=== PATIENT | male | born 1965 | race Caucasian/White ===

== ENCOUNTER 2018-12-23 00:59 | Outpatient (CLI) | payer BC, SELFPAY ==
[2018-12-23 12:10] LABS: ALT 46 U/L (12-78); AST 20 U/L (15-37); Albumin 4.1 g/dL (3.4-5.0); Alkaline Phosphatase 93 U/L (46-116); Anion Gap 7.8 mmol/L (3-11); BUN 11 mg/dL (7-18); Bilirubin, Total 0.6 mg/dL (0.2-1.0); CO2 32.2 mmol/L (21.0-32.0); CREATININE 0.96 mg/dL (0.70-1.30); Calcium 9.2 mg/dL (8.5-10.1); Chloride 96 mmol/L (98-107); Cholesterol 222 mg/dL (50-200); Glucose 114 mg/dL (70-100); HDL Cholesterol 47 mg/dL (40-60); LDL CHOLESTEROL 153 mg/dL (<100); Magnesium 1.3 mg/dL (1.8-2.4); Potassium 4.2 mmol/L (3.5-5.1); Sodium 136 mmol/L (136-145); TSH (W/Ref FT4) 2.03 uIU/mL (0.358-3.74); Total Protein 7.4 g/dL (6.4-8.2); Triglyceride 87 mg/dL (30-150)
== END 2018-12-23 01:19 ==
PROVIDERS: PCP Family Medicine; Visit Provider Family Medicine
DX: Z00.00 Encounter for general adult medical examination without abnormal findings (principal); I10 Essential (primary) hypertension
CPT/HCPCS: 36415; 80053; 80061; 83721; 83735; 84443

== ENCOUNTER 2019-12-28 09:32 | Outpatient (CLI) | payer BC, SELFPAY ==
[2019-12-28 12:09] LABS: ALT 55 U/L (16-63); AST 24 U/L (15-37); Albumin 4.3 g/dL (3.4-5.0); Alkaline Phosphatase 90 U/L (46-116); Anion Gap 10.3 mmol/L (3-11); BUN 11 mg/dL (7-18); Bilirubin, Total 0.7 mg/dL (0.2-1.0); CO2 29.7 mmol/L (21.0-32.0); Calcium 9.4 mg/dL (8.5-10.1); Calculated LDL 147 mg/dL (<100); Chloride 98 mmol/L (98-107); Cholesterol 218 mg/dL (<200); GGT 83 U/L (15-85); Glucose 115 mg/dL (74-106); HDL Cholesterol 52 mg/dL (40-60); Sodium 138 mmol/L (136-145); Total Protein 7.1 g/dL (6.4-8.2); Triglyceride 95 mg/dL (<150)
[2019-12-29 10:22] LABS: PSA, Screening 1.4 ng/mL (0.0-3.5)
== END 2019-12-28 09:52 ==
PROVIDERS: PCP Family Medicine; Visit Provider Family Medicine
DX: Z00.00 Encounter for general adult medical examination without abnormal findings (principal); I10 Essential (primary) hypertension; Z12.5 Encounter for screening for malignant neoplasm of prostate
CPT/HCPCS: 36415; 80053; 80061; 84153; 82977

== ENCOUNTER 2020-04-17 20:47 | Emergency (ER) | payer OTHER, BC, SELFPAY ==
[2020-04-17 20:50] VITALS: BP 124/87; PULSE 120; RESP 18; TEMP 36.7; O2SAT 97
--- NOTE | 2020-04-17 21:00 | DI.RAD_ITS ---
EXAM: XR FINGER LT MIDDLE CLINICAL HISTORY: blunt trauma TECHNIQUE: COMPARISON: No exams were available for comparison FINDINGS: Three views were obtained. There is a transverse fracture of the base of the distal phalanx of the m iddle finger which appears to involve the articular surface with minimal displacement. No other frac ture seen. Marked soft tissue deformity noted. IMPRESSION:
--- NOTE | 2020-04-17 21:12 | ED.GENADUL_ITS ---
Discharge Plan Disposition Patient Disposition: HOME Condition: Improving Discharge Details Chief Complaint: Laceration Clinical Impression: Finger laceration, Fracture of distal phalanx of finger Primary Care Provider: Sonali Daly ED Provider: Sebastian Arechiga Home Meds and New Rx's Prescriptions: New cephalexin 500 mg capsule 500 mg PO TID 3 Days Qty: 9 RF: 0 Continued lisinopril-hydrochlorothiazide 10-12.5 mg tablet 1 tab PO DAILY Qty: 90 RF: 4 Hold Instructions: Changed by Provider aspirin 81 MG tablet,chewable 81 mg PO DAILY RF: 0 omeprazole 20 mg capsule,delayed release(DR/EC) 20 mg PO DAILY Qty: 90 RF: 4 Discharge Instructions Instructions: Finger Fracture (ED), Finger Laceration (ED) Additional Instructions: Leave dressing in place and keep dry while showering until seen in orthopedic clinic for follow-up. Please call the orthopedic clinic at [phone] for an appointment time. Take antibiotics as prescribed. Return for fever, chills, foul-smelling discharge from the wound or any other acute concerns. May use Tylenol if needed for pain. Medical Decision Making 54-year-old male who suffered blunt trauma to his left long finger while working on a well part. He suffered a an obliquely oriented laceration through the distal portion of the nail on the dorsal/ulnar aspect. He does have sensation intact but cannot discriminate 1 cm two-point. X-ray reveals a minimally displaced distal phalanx fracture. Anesthetized a digital block and repaired with 3 interrupted Prolene sutures. Dressed and placed in a splint. Will place him on a short course of Keflex, he will follow-up in orthopedics for recheck. HPI General Mode of arrival: ambulatory . Date/Time Provider Initiated Documentation: 04/17/20 20:48 . Limitations to Documentation: no limitations . Information obtained by: patient . History of Present Illness 54 year old M presents to the emergency department with the chief complaint of Left long finger injury, described as moderate, Quality is described as dull, and is localized to the left and upper extremity. Patient reports no radiation. Patient started experiencing this minute(s) and it has been constant. No rel ieving factors improve symptom(s), No exacerbating factors reported . Patient notes no other symptoms.. Patient did receive the following treatments prior to arrival, none Related Data Home Medications Medication Instructions Recorded Confirmed aspirin 81 mg PO DAILY tab-cap 12/03/16 04/17/20 omeprazole 20 mg capsule,delayed 20 mg PO DAILY #90 tab-cap 11/22/19 04/17/20 release lisinopril 10 1 tab PO DAILY #90 tab 12/28/19 04/17/20 mg-hydrochlorothiazide 12.5 mg tablet cephalexin 500 mg PO TID 3 Days #9 cap 04/17/20 Previous Rx's Medication Instructions Recorded omeprazole 20 mg capsule,delayed 20 mg PO DAILY #90 tab-cap 11/22/19 release lisinopril 10 1 tab PO DAILY #90 tab 12/28/19 mg-hydrochlorothiazide 12.5 mg tablet cephalexin 500 mg PO TID 3 Days #9 cap 04/17/20 Allergies Allergy/AdvReac Type Severity Reaction Status Date / Time No Known Allergies Allergy Unverified 04/17/20 20:57 General Stated Complaint: Laceration LAWRENCE: 4 Review of Systems Narrative: Immunizations up-to-date. Patient is otherwise well. 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 Lobectomy metastasis S/P lobectomy of lung (Resolved) metastasis S/P lower limb amputation (Resolved) Status post below knee amputation (Inactive) Status post lobectomy of lung (Inactive) Family History Mother Asthma Lung cancer Liver cancer Father No problems noted. Sister No problems noted. Brother No problems noted. Maternal Grandfather No problems noted. Paternal Grandfather Heart disease Maternal Grandmother Cancer Paternal Grandmother No problems noted. Social History (Updated 12/29/19 @ 12:07 by William Barth) Smoking/Tobacco Use Status: Current every day Tobacco Type: smokeless tobacco Smokeless tobacco user: chewing tobacco Quit status: has quit before Second Hand Exposure: Yes Alcohol Intake: current Alcohol Intake frequency: 0-2 drinks per day Alcohol type: beer Drug use: Never Substance use type: does not use Caregiver/Support person: No Household members: significant other Housing: house Communication Needs: None Do you need help understanding health information?: Rarely Pets and animals: Yes Pets and animals: cat(s) and dog(s) Sexually active: Yes Do you think of yourself as: straight/heterosexual Current gender identity: male What is your relationship status?: living with partner How often do you talk on the phone with friends or family?: three or more times per week How often do you get together with friends or relatives?: once per week How often do you attend nondenominational or mu-ism services?: decline to answer Do you belong to any clubs or organized social groups?: no Panel score (0-1 are the most socially isolated patients): 2 What type of physical activity do you participate in: other 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 Pleasant, well groomed, interactive. HEAD: Normocephalic, atraumatic EXT: Full ROM, left long finger with a obliquely oriented laceration distal to the nailbed on the ulnar aspect. Two-point discrimination is not intact at 1 cm on the affected part of the finger. There is an abrasion to the distal portion of the ring finger. Neuro: Grossly normal neurologic exam, conversant, interactive. Psych: Speech fluent, thoughts congruent, affect normal Course Vital Signs Vital signs: Vital Signs Temperature 36.7 C 04/17/20 20:50 Pulse 120 H 04/17/20 20:50 Respiratory Rate 18 04/17/20 20:50 Blood Pressure 124/87 04/17/20 20:50 Pulse Oximetry 97 04/17/20 20:50 Temperature 36.7 C 04/17/20 20:50 Temperature Source Skin 04/17/20 20:50 Pulse 120 H 04/17/20 20:50 Respiratory Rate 18 04/17/20 20:50 Respiratory Effort Non-Labored 04/17/20 20:58 Blood Pressure 124/87 04/17/20 20:50 Blood Pressure Position Sitting 04/17/20 20:50 Pulse Oximetry 97 04/17/20 20:50 Oxygen Delivery Method Room Air 04/17/20 20:50 Oxygen Flow Rate 0 04/17/20 20:50 Pain Level 0 04/17/20 20:57 Procedures Laceration Laceration 1: Site: hand Side (If applicable): left Size (cm): 2.5 Description: flap and irregular Local Anesthetic: Lidocaine 1% Pre-repair: irrigated extensively Skin layer closed with: other (Prolene) Size (cm): 5-0 Number of sutures: 3 Technique: simple, interrupted
--- NOTE | 2020-04-17 21:34 | DI.VRAD_ITS ---
PROCEDURE INFORMATION: Exam: XR Left Finger(s) Exam date and time: 04/17/2020 9:29 PM Age: 54 years old Clinical indication: Injury or trauma; Injury history: Finger caught in a machine; Work related; Initial encounter; Crushing; Left; Middle finger; Injury date: 04/17/20; Injury details: Caught in machinery TECHNIQUE: Imaging protocol: XR Left fingers. Views: Minimum 2 views. COMPARISON: No relevant prior studies available. FINDINGS: Bones/joints: A discrete transverse fracture line is seen involving the most proximal shaft and base of the distal phalanx of the left 3rd finger with only minimal displacement. No other fracture identified with general arthrosis noted involving the left index finger metacarpophalangeal joint. Soft tissues: Soft tissue avulsion injury involving the tip of the left 3rd finger as seen on the lateral view. IMPRESSION: Minimally displaced fracture of the distal phalanx of the left 3rd finger with associated soft tissue injury as above. Dictated and Authenticated by: Parveen Richards MD. Ordering:JAQUELIN Cortes MD
[2020-04-17 22:00] VITALS: BP 124/87; PULSE 120; RESP 18; TEMP 36.7; O2SAT 97
== END 2020-04-17 22:00 | disposition home or self-care (01) ==
PROVIDERS: Emergency Provider Emergency Medicine; PCP Family Medicine
DX: S61.313A Laceration without foreign body of left middle finger with damage to nail, initial encounter (principal); S62.633A Displaced fracture of distal phalanx of left middle finger, initial encounter for closed fracture; S60.412A Abrasion of right middle finger, initial encounter; W23.0XXA Caught, crushed, jammed, or pinched between moving objects, initial encounter; Y99.0 Civilian activity done for income or pay; I10 Essential (primary) hypertension
CPT/HCPCS: 12001; 26750; 73140

== ENCOUNTER 2021-01-01 16:23 | Outpatient (REF) | payer BC, SELFPAY ==
[2021-01-01 13:39] LABS: ALT 51 U/L (16-63); AST 21 U/L (15-37); Albumin 4.4 g/dL (3.4-5.0); Alkaline Phosphatase 89 U/L (46-116); BUN 12 mg/dL (7-18); Bilirubin, Total 0.6 mg/dL (0.2-1.0); Calcium 9.6 mg/dL (8.5-10.1); Calculated LDL 130 mg/dL (<100); Chloride 95 mmol/L (98-107); Cholesterol 205 mg/dL (<200); Glucose 128 mg/dL (74-106); HDL Cholesterol 49 mg/dL (40-60); Sodium 136 mmol/L (136-145); Total Protein 7.7 g/dL (6.4-8.2); Triglyceride 134 mg/dL (<150)
== END 2021-01-01 16:24 | disposition home or self-care (01) ==
LOC: LBN 16:23
PROVIDERS: PCP Family Medicine; Visit Provider Family Medicine
DX: Z00.00 Encounter for general adult medical examination without abnormal findings (principal); Z13.220 Encounter for screening for lipoid disorders; Z13.228 Encounter for screening for other metabolic disorders
CPT/HCPCS: 80053; 80061

== ENCOUNTER 2021-12-18 15:01 | Outpatient (CLI) | payer BC, SELFPAY ==
--- NOTE | 2021-12-18 12:45 | DI.RAD_ITS ---
Exam(s) XR KNEE LT 3V AP,LAT,ATIYA EXAM: XR KNEE LT 3V AP,LAT,ATIYA CLINICAL HISTORY: l knee pain, M25.562 TECHNIQUE: COMPARISON: No exams were available for comparison FINDINGS: Three views were obtained. The cartilaginous joint spaces appear fairly well maintained. There are minimal marginal osteophytes involving all 3 joints of the knee. No other significant bony or soft t issue abnormality seen. IMPRESSION: Slight degenerative changes as described above. RADIATION DOSE DELIVERED: Total DLP
== END 2021-12-18 15:21 ==
PROVIDERS: PCP Family Medicine; Visit Provider Family Medicine
DX: M25.562 Pain in left knee (principal); M25.762 Osteophyte, left knee
CPT/HCPCS: 73562

== ENCOUNTER 2021-12-20 09:08 | Outpatient (CLI) | payer BC, SELFPAY ==
--- NOTE | 2021-12-20 09:00 | DI.MRI_ITS ---
Exam(s) MR LOWER JOINT LT WO EXAM: MR LOWER JOINT LT WO CLINICAL HISTORY: left leg internal derangement/ r leg amputated,lt knee pain, m25.562,s TECHNIQUE: Multiplanar multisequence MRI of the knee was performed. COMPARISON: No exams were available for comparison FINDINGS: EFFUSION: A small joint effusion is noted. There is also a Valles cyst in the popliteal fossa which m easures 5 cm craniocaudal by 1 cm AP MARROW:There is no evidence of fracture, bone contusion, nor osteochondral defects.. There are no si gnificant osseous lesions. PATELLOFEMORAL COMPARTMENT: The quadriceps tendon is intact. The patellar ligament is intact. There is moderate thinning of the retropatellar cartilage over the mid and medial facet. There is so me subarticular edema-mild in the posterior aspect of the patella at this level. Also small marginal patellar osteophytes.No evidence to suggest recent patellar dislocation. However, there is signific ant signal abnormality the junction of the medial patellar retinaculum and MCL consistent with tearin g at this level MEDIAL COLLATERAL LIGAMENT: Partial tearing evident CRUCIATE LIGAMENTS: The anterior cruciate ligament is intact.The posterior cruciate ligament is intac t. MEDIAL COMPARTMENT/MEDIAL MENISCUS: There is a tear of the outer 3rd of the posterior horn of the med ial meniscus and there is meniscocapsular separation with significant signal abnormality interposed b etween the outer aspect of the meniscus and the MCL at this level as well as partial tearing of the M CL at its most anterior aspect. The meniscal root is intact. Anterior horn is intact. There moderate degenerative changes in the cartilage over the medial condyle. Also small osteophyte noted. LATERAL COMPARTMENT/LATERAL MENISCUS: There is no evidence of lateral meniscal tear.There are no afia dral defects, osteochondral defects, subarticular marrow edema, nor osteophytes evident. ILIOTIBIAL BAND: Intact LATERAL COLLATERAL LIGAMENT COMPLEX: The fibular collateral ligament is intact. The biceps femoris t endon is intact.Popliteus muscle and tendon are intact. IMPRESSION: 1. There is a tear of the outer third of the medial meniscus with an element of meniscocapsular separ ation and partial tearing of the anterior aspect of the MCL. There are mild-moderate osteoarthritic degenerative changes in the medial compartment. There are no tears of the lateral meniscus nor obvio us degenerative changes in the lateral compartment. 2. There are no cruciate ligament tears. Lateral collateral ligament complex is intact 3. Moderate chondromalacia changes over the mid and medial facet of the patella. Mild subarticular i ntraosseous degenerative findings in the posterior patella at this level. 4. Small joint effusion. There is a 5 cm length nonruptured Valles's cyst in the medial popliteal fos sa. DATA REPOSITORY:
== END 2021-12-20 09:28 ==
PROVIDERS: PCP Family Medicine; Visit Provider Family Medicine
DX: M25.562 Pain in left knee (principal); M23.8X2 Other internal derangements of left knee; M25.462 Effusion, left knee; M71.22 Synovial cyst of popliteal space [Baker], left knee; S83.412A Sprain of medial collateral ligament of left knee, initial encounter; S83.242A Other tear of medial meniscus, current injury, left knee, initial encounter; M17.12 Unilateral primary osteoarthritis, left knee; X58.XXXA Exposure to other specified factors, initial encounter
CPT/HCPCS: 73721

== ENCOUNTER 2022-01-14 02:56 | Outpatient (CLI) | payer BC, SELFPAY ==
[2022-01-14 11:27] LABS: Source Nasal/Nares
[2022-01-14 16:09] LABS: COVID-19 PCR Negative (Negative)
== END 2022-01-14 02:57 | disposition home or self-care (01) ==
LOC: LBO 02:56
PROVIDERS: PCP Family Medicine; Visit Provider Student in an Organized Health Care Education/Training Program
DX: Z20.822 Contact with and (suspected) exposure to COVID-19 (principal); Z01.818 Encounter for other preprocedural examination
CPT/HCPCS: 87635

== ENCOUNTER 2022-01-16 08:15 | Day surgery (SDC) | payer BC, SELFPAY ==
[2022-01-16] VITALS (7 sets, daily range): BP systolic 106–138; BP diastolic 61–90; PULSE 64–101; RESP 11–16; TEMP 36.2–36.6; O2SAT 96–98; BMI 25.6
[2022-01-16] MEDS: Acetaminophen 500 MG TAB 1000 MG PO (08:55)
[2022-01-16] MEDS: Celecoxib 200 MG CAP 400 MG PO (08:55)
[2022-01-16] MEDS: Lactated Ringers 1,000 ML 80 ML IV (08:55)
--- NOTE | 2022-01-16 09:03 | W.ANESPRE ---
General Info Date of Service Date Performed: 01/16/22 Height: 5 ft 9 in Weight: 78.7 kg Body Mass Index (BMI): 25.6 Surgical Procedure: Operation Date: 01/16/22 10:10 Proposed Procedure Side Surgeon p Knee Arthroscopy Left Samir Parker MD Meds Allergies and Home Medications Allergies Allergy/AdvReac Type Severity Reaction Status Date / Time No Known Allergies Allergy Verified 01/16/22 08:30 Home Medication Medication Instructions Recorded omeprazole 20 mg capsule,delayed 20 mg PO DAILY #90 tab-cap 02/19/21 release hydrochlorothiazide 12.5 mg tablet 12.5 mg PO QAM #90 tab 08/20/21 lisinopril 10 mg tablet 10 mg PO DAILY #90 tab 08/20/21 Current Visit Medications: Current Medications Generic Name Dose Route Start Last Admin Trade Name Freq PRN Reason Stop Dose Admin Acetaminophen 1,000 mg 01/16/22 06:00 01/16/22 08:55 Acetaminophen 500 Mg Tab PO 1,000 mg PREOP TIANNA Administration Celecoxib 400 mg 01/16/22 06:00 01/16/22 08:55 Celecoxib 200 Mg Cap PO 400 mg PREOP TIANNA Administration Ringer's Solution 1,000 mls @ 80 mls/hr 01/16/22 06:00 01/16/22 08:55 IV 02/14/22 23:59 80 mls/hr INFUSION TIANNA Administration Cefazolin Sodium/Dextrose 2 gm in 50 mls @ 100 mls/hr 01/16/22 06:00 Ancef Duplex IVPB 02/14/22 23:59 PREOP TIANNA IV Miscellaneous Supplies 1 each 01/16/22 06:00 Iv Access IV 02/14/22 23:59 DIRECTED TIANNA Sodium Chloride 0 ml 01/16/22 06:00 Normal Saline Flush 10 Ml Syr IV 02/14/22 23:59 PRN PRN Sodium Chloride 0 ml 01/16/22 06:00 Normal Saline 10 Ml Vial IJ 02/14/22 23:59 DIRECTED PRN Sterile Water 0 ml 01/16/22 06:00 Water,Injection,Sterile 10 Ml Vial IJ 02/14/22 23:59 DIRECTED PRN PFSH Active Problems Active Problems: Problem Status Onset Code Uveitis H20.9 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 09/25/81 C40.21 Annual physical exam 02/13/18 Z00.00 Essential hypertension Tachycardia Sinusitis J32.9 Encounter for annual physical exam Z00.00 Knee pain, left M25.562 Tear of medial collateral ligament of left knee 12/13/21 S83.412A Tear of meniscus of left knee 12/13/21 S83.207A Annual physical exam Z00.00 Medical History Medical History ACL (anterior cruciate ligament) tear Hypokalemia 11/06/15 Hypokalemia (11/06/15) Hypomagnesemia 11/06/15 Hypomagnesemia (11/06/15) Osteosarcoma of bone Palpitation 12/03/16 Palpitations (12/03/16) Primary malignant neoplasm of lung (09/25/82) metastatic lung cancer 1 year later; now disease free Surgical History Surgical History Amputation right below kne Below knee amputation status right. 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 states it is ABOVE the knee amputations Status post lobectomy of lung Tobacco Smoking/Tobacco Use Status: Current every day Tobacco Type: smokeless tobacco Smokeless tobacco user: chewing tobacco Passive smoking exposure: Yes Second hand exposure: Yes Alcohol Alcohol Intake: current Alcohol intake frequency: 0-2 drinks per day Alcohol type: beer Substance Use Substance use: Never Substance use type: does not use Vital Signs and Lab Results Vital Signs Most Recent Vital Signs in EMR: Most Recent Vital Signs Temp Pulse Resp BP Pulse Ox 36.6 C 101 H 16 129/90 96 01/16/22 08:31 01/16/22 08:31 01/16/22 08:31 01/16/22 08:31 01/16/22 08:31 Lab Results Blood Type / Crossmatch: No Data to Display Complete Blood Count: No Data to Display Complete Metabolic Panel: No Data to Display Liver Function Panel: No Data to Display Coagulation Panel: No Data to Display Cardiac Panel: No Data to Display Arterial Blood Gas: No Data to Display Venous Blood Gas: No Data to Display Pancreas Panel: No Data to Display Thyroid Panel: No Data to Display Infectious Disease: Coronavirus (COVID-19)(PCR) Negative (Negative) 01/14/22 09:38 01/14/22 Coronavirus 2019 Source Nasal/Nares 01/14/22 09:38 01/14/22 Blood Cultures: No Data to Display Toxicology Panel: No Data to Display Anesthesia Assessment and Plan Anesthesia History Personal History: No History of Anesthesia Complications Family History: No Family History of Anesthesia Complications Exercise Tolerance Exercise Tolerance: Metabolic Equivalents>4 Pertinent Negatives Pertinent Negatives: No Symptoms of GERD, No Major Cardiovascular Symptoms or Complaints, No Major Pulmonary Symptoms or Complaints and No History of CVA/TIA Cardiac & Pulmonary Exam Cardiac Exam: Normal S1/S2 Heart Sounds Pulmonary Exam: Clear Bilateral Breath Sounds Implantable Cardiac Device Does patient have a Pacemaker or an ICD?: No Airway Exam Known Difficult Airway: No Mallampati Class: 1 Mouth Opening: Normal (> 3cm) Thyromental Distance: Greater than 3 cm Neck Range of Motion: Full ROM Neck Circumference: Normal Teeth Condition: Normal Dentition ASA Classification ASA Score: ASA 2 Emergency Case?: No NPO Status NPO Status: NPO Clears >2 hours, Solids >8 hours Anesthesia Plan Resuscitation Status: Full Code Anesthesia Technique: General Anesthesia Airway Planned: LMA Monitors Used: Standard Monitors
[2022-01-16] MEDS: ceFAZolin 2 GM/50 ML BAG IVPB (10:58)
[2022-01-16] MEDS: Bupivacaine 0.5% Pres-Free 30 ML VIAL (11:25)
--- NOTE | 2022-01-16 15:17 | W.ANESPOSTOP ---
Postoperative Evaluation Date, Time and Location Date Performed: 01/16/22 Time Performed: 13:15 Patient Location: Day Surgery Unit Vital Signs Most Recent Imported Vital Signs: Most Recent Vital Signs Temp Pulse Resp BP Pulse Ox 36.2 C L 71 16 125/82 98 01/16/22 12:57 01/16/22 12:57 01/16/22 12:57 01/16/22 12:57 01/16/22 12:57 Pain Score Most Recent Pain Score: Most Recent Pain Score Pain Level 0 01/16/22 12:57 Assessment Mental Status: Awake (Alert & Oriented to Patient Baseline) Airway and Respiratory Function: Patent airway with normal (patient baseline) respiratory exam Cardiovascular Function: Hemodynamically Stable Hydration Status: Adequately Hydrated Nausea & Vomiting: No Nausea or Vomiting Pain: Pain is tolerable per patient Peripheral Nerve Block: Patient did not receive a nerve block
--- NOTE | 2022-01-16 19:42 | W.PM.OP ---
Date of service: 01/16/22 Time of Service: 11:40 Operative Note Operative Note DATE OF PROCEDURE: 01/16/22 PRE-OP DIAGNOSIS: Left Knee Medial Meniscus Tear POST-OP DIAGNOSIS: same Left Knee Medial Compartment Chondromalacia SURGEON: Samir Parker Refer to Anesthesia Record ESTIMATED BLOOD LOSS: 0 PATHOLOGY: none sent COMPLICATIONS: None Patient was transported to: PACU Patient's condition: stable Indications: I have seen Hung in clinic for symptoms of a meniscus tear. This was confirmed based on MRI and exam findings. Nonoperative measures were exhausted but disability and pain persisted. I discussed knee arthroscopy with meniscal intervention with the patient. I reviewed the risks of the procedure to include, but not limited to, bleeding, infection, pain, stiffness, damage to nerves or vessels, recurrence, blood clot. Despite these risks, the patient elected to proceed. Findings: A diagnostic arthroscopy was performed with the following findings: Suprapatellar Pouch: Moderate inflammatory changes, No loose bodies Medial Compartment: Complex medial meniscal tear, Intact meniscal root, Grade II chondromalacia throughout with some Grade III focal changes on the femur, No loose bodies Notch: ACL and PCL were intact Lateral Compartment: No meniscal tear, Intact meniscal root, No significant chondromalacia or signs of arthritis, No loose bodies Patellofemoral Compartment: Grade II chondromalacia, No apparent patellar maltracking Procedure Description: Hung was greeted in the preoperative holding area where the correct side was identified and marked. The consent was reviewed with the patient and signed. The history and physical was updated. All questions were answered. He was taken back to the operating room. The patient was placed into the supine position on the operating room table. All bony prominences were well padded. Prophylactic antibiotics in the form of Cefazolin were administered. The left leg was then prepped with Chloraprep and draped in a standard fashion with stockinette and extremity drape. A timeout to confirm correct identity, side and site, procedure, allergies, anesthesia, and medical concerns was performed. The leg was placed into a pneumatic leg lamas, [id number]. A standard lateral portal was made at the lateral border of the patella tendon in line with the inferior pole of the patella, soft spot. The skin and deep tissue was incised sharply and the blunt trochar was inserted atraumatically. A diagnostic arthroscopy was performed and the findings are listed above. The suprapatellar pouch had moderate inflammatory changes. The patellofemoral articulation showed some Grade II chondromalacia at the apex and within the trochlea as well as good tracking. The lateral gutter had no loose bodies and the medial gutter had no loose bodies. The knee was brought into some valgus stress in extension to open the medial compartment. A medial portal was made, localized by a spinal needle. The portal was created with an #11 blade through skin and capsule under direct visualization avoiding any meniscal injury. A probe was then inserted into the medial compartment. The medial compartment was fully inspected. The chondral surface of the tibia showed Grade I chondromalacia and the surface of the femur showed Grade II chondromalacia with some focal Grade III chondromalacia including flap edges centrally. The medial meniscus had a complex tear with a loose piece within the posterior horn completely disconnected from the capsular tissues. There was also some degeneration of the meniscus posteriorly at the root but the root was intact. Complex, horizontal based tearing, was also seen within the meniscus extending anteriorly and posteriorly from the previous tear. After evaluation, the meniscus was debrided down to a stable base using a series of biters and arthroscopic andressa. It was probed afterwards to confirm that the tear had been removed and the meniscus was stable. Cartilage surfaces were debrided of any flaps, leaving any intact fibers. The notch was then inspected which showed an intact ACL and an intact PCL. The leg was then brought into a figure of 4 position. The lateral compartment was fully inspected with the arthroscope and a probe. The chondral surface of the lateral femur showed no significant chondromalacia. The chondral surface of the lateral tibia showed no significant chondromalacia. The lateral meniscus had no meniscal tear. The arthroscope was brought back into the suprapatellar pouch and the leg was in full extension. The knee was thoroughly irrigated with the arthroscopic fluid on high flow and pressure. Inflow was stopped and excess fluid was removed. The wounds were closed with 4-0 Nylon. They were dressed with Xeroform, 4x4 gauze, ABD pad, Kerlix and an KWESI wrap. A cryo-cuff was applied. The patient tolerated the procedure well and was returned to the Same Day Surgery area in a stable condition suffering no known complication.
== END 2022-01-16 13:34 | disposition home or self-care (01) ==
PROVIDERS: PCP Family Medicine; Visit Provider Student in an Organized Health Care Education/Training Program
PROC: (CPT 29870; principal; 2022-01-16 10:00)
DX: M23.232 Derangement of other medial meniscus due to old tear or injury, left knee (principal); M94.262 Chondromalacia, left knee; F17.220 Nicotine dependence, chewing tobacco, uncomplicated
CPT/HCPCS: 29881; J0690; J1885; J2001; J2250; J2405

== ENCOUNTER 2022-03-15 02:22 | Outpatient (CLI) | payer BC, SELFPAY ==
[2022-03-15 13:42] LABS: ALT 45 U/L (16-63); AST 20 U/L (15-37); Alkaline Phosphatase 99 U/L (46-116); BUN 10 mg/dL (7-18); Bilirubin, Total 0.4 mg/dL (0.2-1.0); CREATININE 0.9 mg/dL (0.70-1.30); Calcium 9.2 mg/dL (8.5-10.1); Calculated LDL 143 mg/dL (<100); Chloride 97 mmol/L (98-107); Cholesterol 221 mg/dL (<200); Glucose 91 mg/dL (74-106); HDL Cholesterol 51 mg/dL (40-60); Potassium 3.9 mmol/L (3.5-5.1); Sodium 139 mmol/L (136-145); Total Protein 7.4 g/dL (6.4-8.2); Triglyceride 139 mg/dL (<150)
== END 2022-03-15 02:23 | disposition home or self-care (01) ==
LOC: LOS 02:24
PROVIDERS: PCP Family Medicine; Visit Provider Family Medicine
DX: Z00.00 Encounter for general adult medical examination without abnormal findings (principal); I10 Essential (primary) hypertension
CPT/HCPCS: 36415; 80053; 80061

== ENCOUNTER → 2022-05-29 01:49 | Outpatient (CLI) | payer BC, SELFPAY ==
--- NOTE | 2022-05-29 08:00 | DI.MRI_ITS ---
Exam(s) MR LOWER JOINT LT WO EXAM: MR LOWER JOINT LT WO CLINICAL HISTORY: pre op decision for partial versus total knee,lt knee pain, tear meniscus. TECHNIQUE: Multiplanar multisequence MRI was performed. COMPARISON: CR XR KNEE LT 3V AP,LAT,ATIYA from 12/18/2021 MR MR LOWER JOINT LT WO from 12/20/2021 FINDINGS: BONES: There is no fracture or contusion pattern. JOINTS: The articular cartilage of the medial femoral condyle shows thinning and irregularity extendi ng down to bone with some abnormal foci of high signal in the marrow. There is also thinning or foca l area of thinning of the lateral femoral condyle cartilage which extends down to bone but does not i nvolve the underlying bone. There is also focal areas of thinning in the cartilage over the lateral tibial plateau. The cartilage over the medial tibial plateau is severely thin there is mild adjacent marrow edema. The findings appear to have worsened when compared the previous exam. Stable cartila ge thinning at the patellar apex and medial patellar facet. There is thinning and irregularity of th e cartilage overlying the adjacent aspect of the femoral cartilage. A small to moderate-sized joint effusion is present, increasing compared with the previous exam.. TENDONS: Extensor mechanism: Unremarkable. Medial retinaculum: Unremarkable. Lateral retinaculum: Unremarkable. Popliteus: Unremarkable. MUSCLES: Some edema in the medial head of the gastrocnemius muscle adjacent to the Valles's cyst. MENISCI: The body the medial meniscus is absent or extremely diminutive which may be postsurgical or degenerative. There is mildly increased signal in both the anterior and posterior horns. The latera l meniscus is unremarkable. SOFT TISSUES: Varicosities medial subcutaneous tissue. Increasing size of Valles's cyst, now with lacey e loculations extending inferiorly.. LIGAMENTS: Anterior Cruciate: Unremarkable. Posterior Cruciate: Unremarkable. Medial Collateral:Some surrounding fluid but no visible focal tear. Lateral Collateral: Unremarkable. IMPRESSION: Absent or extremely diminutive body of the medial meniscus, degenerative versus postsurgical. 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 Stable moderate chondromalacia of the patellofemoral joint. Focal cartilage defects are now visible in the cartilage of the lateral femoral condyle and lateral t ibial plateau. DATA REPOSITORY:
== END ==
PROVIDERS: PCP Family Medicine; Visit Provider Student in an Organized Health Care Education/Training Program
DX: M94.262 Chondromalacia, left knee; M22.42 Chondromalacia patellae, left knee
CPT/HCPCS: 73721

== ENCOUNTER 2022-08-19 03:00 | Outpatient (CLI) | payer BC, SELFPAY ==
[2022-08-19 14:29] LABS: HCT 45.1 % (40.0-50.0); HGB 15.7 g/dL (13.5-17.5); MCH 31.7 pg (27.0-33.0); MCHC 34.8 % (32.0-36.0); MCV 91 fL (80-95); MPV 10.9 fL (8.0-11.0); Platelet Count 245 10^3/uL (130-400); RBC 4.95 10^6/uL (4.36-5.78); RDW 11.9 % (11.8-14.1); WBC 10.33 10^3/uL (4.4-10.8)
[2022-08-19 14:32] LABS: Anion Gap 6.7 mmol/L (3-11); BUN 12 mg/dL (7-18); CO2 31.3 mmol/L (21.0-32.0); CREATININE 1.1 mg/dL (0.70-1.30); Calcium 9.5 mg/dL (8.5-10.1); Chloride 98 mmol/L (98-107); Estimated GFR 79.28 (mL/min/1.73m2); Glucose 104 mg/dL (74-106); Potassium 3.8 mmol/L (3.5-5.1); Sodium 136 mmol/L (136-145)
== END 2022-08-19 03:01 | disposition home or self-care (01) ==
LOC: LBO 03:00
PROVIDERS: PCP Family Medicine; Visit Provider Student in an Organized Health Care Education/Training Program
DX: M25.562 Pain in left knee (principal); M17.12 Unilateral primary osteoarthritis, left knee; Z01.818 Encounter for other preprocedural examination; Z01.812 Encounter for preprocedural laboratory examination
CPT/HCPCS: 36415; 80048; 85027

== ENCOUNTER 2022-08-19 13:40 | Outpatient (CLI) | payer BC, SELFPAY ==
--- NOTE | 2022-08-19 13:00 | DI.RAD_ITS ---
Exam(s) XR KNEE LT 1V XR STANDING ALIGNMENT EXAM: XR STANDING ALIGNMENT CLINICAL HISTORY: preop with mag marker. TECHNIQUE: 2D digital imaging was performed. Standing AP views were performed from the pelvis throu gh the ankles. Lateral view left knee COMPARISON: CR XR KNEE LT 3V AP,LAT,ATIYA from 12/18/2021 MR MR LOWER JOINT LT WO from 12/20/2021 MR MR LOWER JOINT LT WO from 05/29/2022 CR XR KNEE LT 1V from 08/19/2022 FINDINGS: BONES: No acute fracture is present. No bony destructive lesion is seen. Prior above the knee amputa tion at the mid femoral level. JOINTS: Knees: Narrowing of the medial femoral tibial joint space of the left knee. Varus angulation. The left ankle joints is unremarkable. The hip joints bilateral acetabular spurring. No significant joint space narrowing. SOFT TISSUE: Normal. IMPRESSION: Degenerative changes of the medial femoral tibial joint of the left knee. Status post above the kne e amputation of the right leg. . DATA REPOSITORY: RADIATION DOSE DELIVERED:
== END 2022-08-19 13:41 | disposition home or self-care (01) ==
LOC: DIORS 13:40
PROVIDERS: PCP Family Medicine; Referring Provider Family Medicine; Visit Provider Physician Assistant Surgical
DX: M17.12 Unilateral primary osteoarthritis, left knee (principal)
CPT/HCPCS: 73560; 77073

== ENCOUNTER 2022-08-27 08:01 | Day surgery (SDC) | payer BC, SELFPAY ==
[2022-08-27] VITALS (11 sets, daily range): BP systolic 103–143; BP diastolic 64–87; PULSE 72–92; RESP 12–25; TEMP 36.4–36.8; O2SAT 95–98; BMI 26.0
--- NOTE | 2022-08-27 06:33 | W.PM.DSUDISC ---
Date of service: 08/27/22 Time of Service: 16:15 Discharge Plan Disposition Patient Disposition: HOME Condition: Good Discharge Details Reason For Visit: Left TKA Attending Provider: Samir Parker Primary Care Provider: Sonali Daly Home Meds and New Rx's Prescriptions: New acetaminophen 500 mg capsule 1,000 mg PO Q8H PRN PRNQty: 90 0RF aspirin 81 mg tablet,delayed release (DR/EC) 81 mg PO BID Qty: 60 0RF celecoxib [Celebrex] 200 mg capsule 200 mg PO BID Qty: 60 0RF gabapentin 300 mg capsule 300 mg PO QHS Qty: 14 0RF oxycodone 5 mg tablet 5 mg PO Q4H PRNQty: 18 0RF dexamethasone 4 mg tablet 4 mg PO DAILY Qty: 2 0RF Continued omeprazole 20 mg capsule,delayed release(DR/EC) 20 mg PO DAILY Qty: 30 3RF lisinopril 10 mg tablet 10 mg PO DAILY Qty: 30 3RF hydrochlorothiazide 12.5 mg tablet 12.5 mg PO QAM Qty: 30 3RF Discontinued aspirin 81 mg tablet,delayed release (DR/EC) 81 mg PO DAILY Discharge Instructions Additional Instructions: Total Knee Discharge Instructions Activity: The most important activity is to walk and to work on gentle motion (both flexion and extension). You should try to take short walks a few times a day. It is important that when resting you work on keeping the knee straight. Avoid putting a pillow behind the knee as this will encourage flexion. Work on range of motion exercises as provided by Physical Therapy. - Start outpatient physical therapy within 2 weeks. - You should wear the KHADAR hose on both legs for 2 weeks. You may remove these at night. You may also use any compression sock in place of the KHADAR hose. - Utilize [employer] to review exercises, see videos on exercises and obtain basic information pertaining to your surgery and your recovery. Dressing: Remove the Hugo wrap by 2 days after your surgery and put on the KHADAR stocking given to you from the hospital. Keep the surgical dressing (underneath the HUGO wrap) in place for at least one week. After the first week it may be removed and replaced with light gauze and tape or nothing. The wound and dressing may get wet after 3 days but avoid soaking the dressing or otherwise it will need to be changed. Many people prefer covering the dressing with cling wrap (saran wrap) to minimize it from getting soaked. If it gets wet, just pat dry. If it starts to peel off then it will need to be changed. Medications: - You should take Tylenol and anti-inflammatory Celebrex as your primary pain control medications. If the Celebrex is too expensive or not covered, please call the office for another alternative (Advil/Ibuprofen or Naproxen/Aleve) - You have been prescribed a stronger pain medication Oxycodone for breakthrough pain, take as needed as prescribed. - Continue with your previously prescribed stomach acid reduction agent Omeprazole to help reduce stomach acid and reflux. - You have been prescribed Gabapentin to take at night for restlessness and nerve pain. - You will be taking Aspirin 81mg twice a day for DVT prevention unless instructed otherwise. - You have also been prescribed Decadron to take to control post-operative nausea and pain. You will start this tomorrow. - If you have constipation you should take Colace or Miralax (both [id number]). It takes most people 3-4 days to have a bowel movement. Follow-up: 2 weeks If you have any acute concerns or questions, please do not hesitate to contact the office at [phone]. You may contact Dr. Parker with any questions after hours through the hospital at [phone] or on his cell phone at [phone]. Stand Alone Forms: Anesthesia Discharge Inst., Anes.Nerve Block Instructions, Don Mohr ([facility]) Referrals: Samir Parker MD [ [facility] STAFF PHYSICIAN] - Equipment/Supplies: Walker Activity:: Activity as Tolerated Remove Dressings/Wound Care:: Do Not Remove Shower/Bathe:: 72 hours Diet:: As Tolerated Discharge Orders Discharge Orders: Discharge Order (Routine); Ordered 08/27/22 Ordered By: Samir Parker DS: Diagnosis Discharge Diagnosis (1) Arthritis of left knee: Status: Chronic
[2022-08-27] MEDS: Celecoxib 200 MG CAP 400 MG PO (08:58)
[2022-08-27] MEDS: Acetaminophen 500 MG TAB 1000 MG PO (08:59)
[2022-08-27] MEDS: Gabapentin 300 MG CAP PO (08:59)
--- NOTE | 2022-08-27 09:07 | W.ANESPRE ---
General Info Date of Service Date Performed: 08/27/22 Height: 5 ft 9 in Weight: 80 kg Body Mass Index (BMI): 26.0 Surgical Procedure: Operation Date: 08/27/22 11:25 Proposed Procedure Side Surgeon p Knee Total Arthroplasty Cementless CR Left Samir Parker MD Meds Allergies and Home Medications Allergies Allergy/AdvReac Type Severity Reaction Status Date / Time No Known Allergies Allergy Verified 08/27/22 08:39 Home Medication Medication Instructions Recorded hydrochlorothiazide 12.5 mg tablet 12.5 mg PO QAM #30 tabs 07/08/22 lisinopril 10 mg tablet 10 mg PO DAILY #30 tabs 07/08/22 omeprazole 20 mg capsule,delayed 20 mg PO DAILY #30 tab-caps 07/08/22 release acetaminophen 500 mg capsule 1,000 mg PO Q8H PRN PRN #90 caps 08/27/22 aspirin 81 mg tablet,delayed 81 mg PO BID #60 tabs 08/27/22 release celecoxib 200 mg capsule (Celebrex) 200 mg PO BID #60 caps 08/27/22 dexamethasone 4 mg tablet 4 mg PO DAILY #2 tabs 08/27/22 gabapentin 300 mg capsule 300 mg PO QHS #14 caps 08/27/22 oxycodone 5 mg tablet 5 mg PO Q4H PRN #18 tabs 08/27/22 Current Visit Medications: Current Medications Generic Name Dose Route Start Last Admin Trade Name Freq PRN Reason Stop Dose Admin Acetaminophen 1,000 mg 08/27/22 06:00 08/27/22 08:59 Acetaminophen 500 Mg Tab PO 08/27/22 16:00 1,000 mg PREOP TIANNA Administration Acetaminophen 1,000 mg 08/27/22 14:00 Acetaminophen 500 Mg Tab PO TID TIANNA Aspirin 81 mg 08/27/22 20:00 Aspirin E.C. 81 Mg Tabec PO BID TIANNA Celecoxib 400 mg 08/27/22 06:00 08/27/22 08:58 Celecoxib 200 Mg Cap PO 08/27/22 16:00 400 mg PREOP TIANNA Administration Celecoxib 200 mg 08/27/22 20:00 Celecoxib 200 Mg Cap PO BID TIANNA Dexamethasone 4 mg 08/28/22 08:30 Dexamethasone 4 Mg Tab PO 08/29/22 08:31 DAILY TIANNA Docusate Sodium 100 mg 08/27/22 06:31 Docusate Sodium 100 Mg Cap PO BID PRN PRN Constipation Gabapentin 300 mg 08/27/22 06:00 08/27/22 08:59 Gabapentin 300 Mg Cap PO 08/27/22 16:00 300 mg PREOP TIANNA Administration Gabapentin 300 mg 08/27/22 22:00 Gabapentin 300 Mg Cap PO HS TIANNA Hydromorphone HCl 0.5 mg 08/27/22 06:31 Hydromorphone 2 Mg/Ml Syr IVP Q2H PRN PRN Tranexamic Acid 1,000 mg/ 60 mls @ 360 mls/hr 08/27/22 06:00 Sodium Chloride IVPB 08/27/22 16:00 PREOP TIANNA Ringer's Solution 1,000 mls @ 80 mls/hr 08/27/22 06:00 IV 08/27/22 23:59 INFUSION TIANNA Cefazolin Sodium/Dextrose 2 gm in 50 mls @ 100 mls/hr 08/27/22 06:00 Ancef Duplex IVPB 08/27/22 23:59 PREOP TIANNA Cefazolin Sodium/Dextrose 1 gm in 50 mls @ 100 mls/hr 08/27/22 17:00 Ancef Duplex IVPB 08/28/22 09:29 Q8H TIANNA IV Miscellaneous Supplies 1 each 08/27/22 06:00 Iv Access IV 08/27/22 23:59 DIRECTED TIANNA Ondansetron HCl 4 mg 08/27/22 06:31 Ondansetron 4 Mg/2 Ml Vial IVP Q6H PRN PRN Nausea Oxycodone HCl 0 mg 08/27/22 06:31 Oxycodone 5 Mg Tab PO Q3H PRN PRN Pain Pantoprazole Sodium 40 mg 08/28/22 07:30 Pantoprazole 40 Mg Tabcr PO DAILY@0730 TIANNA Sodium Chloride 0 ml 08/27/22 06:00 Normal Saline Flush 10 Ml Syr IV 08/27/22 23:59 PRN PRN Sodium Chloride 0 ml 08/27/22 06:00 Normal Saline 10 Ml Vial IJ 08/27/22 23:59 DIRECTED PRN Sterile Water 0 ml 08/27/22 06:00 Water,Injection,Sterile 10 Ml Vial IJ 08/27/22 23:59 DIRECTED PRN PFSH Active Problems Active Problems: Problem Status Onset Code Uveitis H20.9 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 09/25/81 C40.21 Annual physical exam 18 Z00.00 Essential hypertension Tachycardia Sinusitis J32.9 Encounter for annual physical exam Z00.00 Knee pain, left M25.562 Tear of medial collateral ligament of left knee 12/13/21 S83.412A Tear of meniscus of left knee 12/13/21 S83.207A Annual physical exam Z00.00 Arthritis of left knee M17.12 Medical History Medical History ACL (anterior cruciate ligament) tear History of lung cancer left lung lobectony Hypokalemia 11/06/15 Hypokalemia (11/06/15) Hypomagnesemia 11/06/15 Hypomagnesemia (11/06/15) Osteosarcoma of bone Palpitation 12/03/16 Palpitations (12/03/16) Primary malignant neoplasm of lung (09/25/82) metastatic lung cancer 1 year later; now disease free Surgical History Surgical History Below knee amputation status right. 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 states it is ABOVE the knee amputations Status post lobectomy of lung Tobacco Smoking/Tobacco Use Status: Current every day Tobacco Type: smokeless tobacco Smokeless tobacco user: chewing tobacco Passive smoking exposure: Yes Second hand exposure: Yes Alcohol Alcohol Intake: current Alcohol intake frequency: a few times a week Alcohol type: beer Substance Use Substance use: Never Substance use type: does not use Vital Signs and Lab Results Vital Signs Most Recent Vital Signs in EMR: Most Recent Vital Signs Temp Pulse Resp BP Pulse Ox 36.8 C 85 16 132/83 97 08/27/22 08:53 08/27/22 08:53 08/27/22 08:53 08/27/22 08:53 08/27/22 08:53 Lab Results Blood Type / Crossmatch: No Data to Display Complete Blood Count: White Blood Count 10.33 10^3/uL (4.4-10.8) 08/19/22 13:58 Red Blood Count 4.95 10^6/uL (4.36-5.78) 08/19/22 13:58 Hemoglobin 15.7 g/dL (13.5-17.5) 08/19/22 13:58 Hematocrit 45.1 % (40.0-50.0) 08/19/22 13:58 Platelet Count 245 10^3/uL (130-400) 08/19/22 13:58 Complete Metabolic Panel: Sodium 136 mmol/L (136-145) 08/19/22 13:58 Potassium 3.8 mmol/L (3.5-5.1) 08/19/22 13:58 Chloride 98 mmol/L (98-107) 08/19/22 13:58 Carbon Dioxide 31.3 mmol/L (21.0-32.0) 08/19/22 13:58 BUN 12 mg/dL (7-18) 08/19/22 13:58 Creatinine 1.1 mg/dL (0.70-1.30) 08/19/22 13:58 Est GFR (CKD-EPI 2020) 79.28 (mL/min/1.73m2) 08/19/22 13:58 Calcium 9.5 mg/dL (8.5-10.1) 08/19/22 13:58 Glucose 104 mg/dL (74-106) 08/19/22 13:58 Liver Function Panel: No Data to Display Coagulation Panel: No Data to Display Cardiac Panel: No Data to Display Arterial Blood Gas: No Data to Display Venous Blood Gas: No Data to Display Pancreas Panel: No Data to Display Thyroid Panel: No Data to Display Infectious Disease: No Data to Display Blood Cultures: No Data to Display Toxicology Panel: No Data to Display Anesthesia Assessment and Plan Anesthesia History Personal History: No History of Anesthesia Complications Family History: No Family History of Anesthesia Complications Exercise Tolerance Exercise Tolerance: Metabolic Equivalents>4 Pertinent Negatives Pertinent Negatives: No Symptoms of GERD (Controlled on medication), No Major Cardiovascular Symptoms or Complaints and No Major Pulmonary Symptoms or Complaints Cardiac & Pulmonary Exam Cardiac Exam: Normal S1/S2 Heart Sounds Pulmonary Exam: Clear Bilateral Breath Sounds Implantable Cardiac Device Does patient have a Pacemaker or an ICD?: No Airway Exam Known Difficult Airway: No Mallampati Class: 1 Mouth Opening: Normal (> 3cm) Thyromental Distance: Greater than 3 cm Neck Range of Motion: Full ROM Neck Circumference: Normal Teeth Condition: Normal Dentition ASA Classification ASA Score: ASA 2 Emergency Case?: No NPO Status NPO Status: NPO Clears >2 hours, Solids >8 hours Anesthesia Plan Resuscitation Status: Full Code Anesthesia Technique: Spinal Anesthesia Airway Planned: Natural Airway Pain Management: Surgeon and patient request nerve block Monitors Used: Standard Monitors
[2022-08-27] MEDS: Lactated Ringers 1,000 ML 80 ML IV (09:20)
[2022-08-27] MEDS: ceFAZolin 2 GM/50 ML BAG IVPB (10:30)
--- NOTE | 2022-08-27 11:13 | W.ANESNERVE ---
Nerve Block Single Injection Procedure Date and Time Date Performed: 08/27/22 Procedure Start: 10:19 Location Where Procedure Performed Procedure Location: Day Surgery Unit Reason Performed: Postoperative Analgesia Requesting Provider: Saimr Parker Timeout Performed Timeout Performed: Yes Monitoring Used ECG, Blood Pressure, SpO2 and See EMR for corresponding vital signs Sterility Sterility: Hand Hygiene, Surgical Cap, Surgical Mask, Sterile Gloves and Chlorhexidine Sedation Given During Procedure Sedation Given (Indicate Dose Given): No Sedation given Patient Mental Status Patient Mental Status: Awake Nerve Block 1st Nerve Block: Laterality: Left Block Type: Adductor Canal Needle / Catheter Used: 100mm SonoPlex II Local Anesthetic Bolus (Indicate Dose Given): Lidocaine used for local infiltration of skin, Injected in 3-5ml increments after negative blood aspiration and Bupivacaine 0.25% Dose:: 15mL Additives (Indicate Dose Given): None Ultrasound: Sterile probe cover and gel used Ultrasound Image Saved?: Yes Nerve Stimulator: Not Used Paresthesia: None Procedure Tolerated: No Complications Procedure Outcome: Successful Performed By: Anh Bennett
--- NOTE | 2022-08-27 14:19 | W.ANESPOSTOP ---
Postoperative Evaluation Date, Time and Location Date Performed: 08/27/22 Time Performed: 14:29 Patient Location: Day Surgery Unit Vital Signs Most Recent Imported Vital Signs: Most Recent Vital Signs Temp Pulse Resp BP Pulse Ox 36.6 C 78 16 126/85 97 08/27/22 13:50 08/27/22 13:50 08/27/22 13:50 08/27/22 13:50 08/27/22 13:50 Pain Score Most Recent Pain Score: Most Recent Pain Score Pain Level 0 08/27/22 13:50 Assessment Mental Status: Awake (Alert & Oriented to Patient Baseline) Airway and Respiratory Function: Patent airway with normal (patient baseline) respiratory exam Cardiovascular Function: Hemodynamically Stable Hydration Status: Adequately Hydrated Nausea & Vomiting: No Nausea or Vomiting Pain: Pt. Denies Any Pain Peripheral Nerve Block: Regional nerve block not resolved at time of post operative discharge
--- NOTE | 2022-08-27 16:15 | ROE_ITS ---
Date of service: 08/27/22 Time of Service: 11:40 Operative Note Operative Note DATE OF PROCEDURE: 08/27/22 PRE-OP DIAGNOSIS: Left Knee Osteoarthritis POST-OP DIAGNOSIS: same PROCEDURE: Left Total Knee Replacement SURGEON: Samir Parker HOLIDAY DETECTOR OPERATOR: Violetta Freedman ANESTHESIA TYPE: Spinal Refer to Anesthesia Record ESTIMATED BLOOD LOSS: 100 PATHOLOGY: none sent TOURNIQUET TIME: 0 COMPLICATIONS: None Patient was transported to: PACU Patient's condition: stable Implants: 1. Depuy Attune Cementless Cruciate Retaining Femoral Component, Size 7 2. Depuy Attune Cementless Rotating Platform Tibial Component, Size 6 3. Depuy Attune 7x7 CR/RP Poly 4. Depuy Attune Patellar Component, Size 38 Indications: I have seen Hung in clinic for symptoms of knee arthritis, confirmed with radiographic findings. He has exhausted nonoperative methods and was having significant limitations in daily function and desired better function and less pain. I discussed the technical details of a knee replacement. I explained the risks of the procedure to include, but not limited to, bleeding, infection, pain, stiffness, fracture, damage to nerves and vessels, damage to muscles and tendons, loosening, need for repeat procedure, blood clot and cardiopulmonary demise. Despite these risks, Hung elected to proceed. Findings: There was significant signs of arthritis throughout the knee, most concentrated in the medial tibia and femur but as well with in the central patella and lateral tibia. Procedure Description: Hung was greeted in the preoperative holding area where the correct side was identified and marked. The consent was reviewed with the patient and signed. The history and physical was updated. All questions were answered. Preoperative medications were administered: Acetaminophen 1000mg, Celebrex 400mg, and Gabapentin 300mg. An adductor canal block was then administered by the anesthesia team in the PACU. Hung was taken back to the operating room. A spinal anesthestic was then administered. The patient was placed into the supine position on the operating room table. A nonsterile tourniquet was placed high onto the leg but only used for cementing. Posts were placed for positioning during the procedure. All bony prominences were well padded. Prophylactic antibiotics in the form of Cefazolin were administered. 1g of Tranxemic Acid was given intravenously within 30 minutes of incision. The left leg was then prepped with Chloraprep and draped in a standard fashion with impervious stockinette. A second prep with Chloraprep was performed prior to application of Iodine impregnated skin protection. A timeout to confirm correct identity, side and site, procedure, allergies, anesthesia, and medical concerns was performed. With the knee in some flexion, a midline incision was made overlying the knee. Full thickness skin flaps were raised once the extensor mechanism was encountered. These were raised medially and laterally. Any bleeding was controlled with electrocautery. Once the extensor mechanism was fully exposed, a medial parapatellar arthrotomy was performed in a flexed position. All bleeding from the arthrotomy and the geniculate arteries was coagulated. A medial subperiosteal peel was performed with electrocautery to the midcoronal plane. The fat pad was removed while keeping the patellar tendon protected. The anterior distal femur synovium was removed for later visualization. The ACL and PCL were resected and the anterior horn of the lateral meniscus was transected. The knee was then flexed with the patella everted. Using a step drill, and based on preoperative templating, the femoral canal was entered. This was done with a step drill without any difficulty. The intramedullary distal femoral cut guide was inserted, set to a 6 degree valgus cut and 9mm cut thickness. The distal femoral cut guide was then held in position and pinned. With the soft tissues protected, the distal cut was performed. This was passed over a few times to ensure a planar cut. I then turned attention to the tibia. The extramedullary guide was placed onto the leg. The distal aspect was slid medial to adjust for position of center of ankle and stay in line with shaft of the tibia. Approximately 3-5 degrees of posterior slope was kept in the proximal cutting guide. The center of the guide was aligned with the PCL. The stylus was used to assess cut thickness. The medial side, most involved side, was set for a 4mm cut. This was then held in position and pinned into place with 2 additional pins and a cross pin for stability. The medial and lateral collateral ligaments were protected and the cut was performed. With this completed, it was assessed and noted to be of appropriate dimensions. The guide was removed. A spacer block was inserted and the knee was brought into extension. The 6mm spacer block provided full extension, without hyperextension and with stability of both the medial and lateral collateral ligaments was assessed. The pins from the femur and the tibia were then removed. The distal femur was then sized. The anterior stylus was placed onto the la teral ridge of the anterior femur. This indicated a size 7 femur. The external rotation of the guide was adjusted to 3 degrees to match the epicondylar axis, perpendicular to [place]?s line. The 4-in-1 cutting guide was the placed. The posterior medial femur cut was evaluated and appeared of good thickness. The spacer block was inserted underneath the cutting guide and stability was confirmed in 90 degrees of flexion. An rishabh wing was used to confirm appropriate position of the anterior cut to avoid notching. This cutting guide was ensured to be flush on the cut surface and then pinned into place with headed pins. While protecting the soft tissues, quad tendon, and collateral ligaments, the anterior and posterior cuts were performed with a saw. The central two pins were removed and the posterior and anterior chamfers were cut next. The notch-cutting guide was placed. This was pinned to lateralize the femoral component as much as possible while keeping it flush on the cut surface. This was then pinned into position. A reciprocating saw was used to make the notch cut. A rasp smoothed the cut surfaces. The medial and lateral menisci were removed. A trial femoral component was then inserted, impacted down to the cut surfaces, and the lug holes were drilled. A provisional trial tibial component was placed and the knee was brought through range of motion. The polyethylene was trialed until there was good flexion and extension with excellent stability to the medial and lateral collaterals. The patella was tracking without thumbs. A size 7mm polyethylene component provided the best range of motion and stability with less than 2mm gapping with medial and lateral stress and full extension without significant hyperextension. The tibial cut surface was fully exposed. The tibia was then sized as a 6. The tibia had been previously marked during trialing to correspond to the center of the tibial component to help with rotation. The trial was aligned to this joselo, approximately rotated to the medial 1/3rd of the tibial tubercle. The trial was pinned into place. The tibia was prepared with a reamer and a keel punch and lug holes. The knee was then brought into extension and the patella was measured as 28mm. Using the patellar clamp and cut guide, this was resected to a flat surface with at least 13mm of thickness remaining. The size 38 patella fit the best. This was oriented and then clamped into position. The lugs were drilled. The trial components were removed. The final components were opened on the back table. The periosteal and capsular tissues, especially posteriorly, around the knee were then systematically injected with a periarticular cocktail consisting of 246mg of Ropivacaine, 0.5mg of Epinephrine, 0.08mg of Clonidine, and 30mg of Ketorolac, diluted to 100cc. On the back table, with the implants opened, the cement was mixed. One batch of high viscosity cement was prepared with vacuum assistance. After the cement was ready a small amount was placed on the cut surface of the patella and the patellar button was clamped into position and held. While the cement was hardening, the cementless knee components were placed. Starting with the tibial component, the tibia was subluxed anteriorly and the lug holes of the component were lined up. The tibia was then impacted with an impactor and mallet until the tibial component was in contact with the tibia. The final polyethylene component was inserted. Then, the femoral component was inserted. The lug holes were aligned and the component was impacted into position. The knee was irrigated with Surgiphor Betadine solution. This was allowed to sit in the knee for 3 minutes and then it was irrigated out with saline. After the cement had finally cured, approximately 15min, the clamp was removed from the patella and the knee was taken through range of motion. The patella was tracking with a no-thumbs technique. The capsule was then reapproximated with a No. 1 Vicryl at multiple locations. The capsule was finally closed with a No. 2 Stratafix, barbed suture. The second dosing of 1g TXA was started. Deep tissues were then reapproximated with 0 Vicryl and 2-0 Vicryl. The skin was closed with a running 3-0 Monocryl in a subcuticular fashion. This was reinforced with skin glue. A Mepilex silver dressing was applied along with a [id number] KWESI wrap. A CryoCuff was applied. Hung was transferred to the hospital bed without difficulty an suffering no apparent complication. Hung has a good prognosis. Physical therapy will start today and without restrictions, weight-bearing as tolerated. Aspirin 81mg BID will be used for DVT prophylaxis.
== END 2022-08-27 16:34 | disposition home or self-care (01) ==
PROVIDERS: PCP Family Medicine; Visit Provider Student in an Organized Health Care Education/Training Program
PROC: (CPT 27447; principal; 2022-08-27 11:15)
DX: M17.12 Unilateral primary osteoarthritis, left knee (principal); I10 Essential (primary) hypertension; Z89.611 Acquired absence of right leg above knee; Z85.830 Personal history of malignant neoplasm of bone; Z85.118 Personal history of other malignant neoplasm of bronchus and lung
CPT/HCPCS: 27447; 76942; 97161; J0690; J1100; J2250; J2405

== ENCOUNTER 2022-09-09 13:12 | Outpatient (CLI) | payer BC, SELFPAY ==
--- NOTE | 2022-09-09 13:00 | DI.RAD_ITS ---
Exam(s) XR KNEE LT 1V XR STANDING ALIGNMENT EXAM: XR STANDING ALIGNMENT CLINICAL HISTORY: s/p left TKA. TECHNIQUE: 2D digital imaging was performed. Standing AP views were performed from the pelvis throu gh the ankles. COMPARISON: CR XR STANDING ALIGNMENT from 08/19/2022 CR XR KNEE LT 1V from 09/09/2022 FINDINGS: BONES: No acute fracture is present. No bony destructive lesion is seen. There has been amputation a t the level of the right mid femur. Exam was performed with the right lower extremity prosthesis in place. Leg length discrepancy: The left femoral head projects 7 millimeters superior to the right. JOINTS: Knees: Total left knee prosthesis without abnormal surrounding lucencies. The right ankle joint is unremarkable. The hip joints are unremarkable. SOFT TISSUE: Normal. IMPRESSION: Total left knee prosthesis, unremarkable. Status post amputation at the mid right femoral level. Mild leg length discrepancy. DATA REPOSITORY: RADIATION DOSE DELIVERED:
== END 2022-09-09 13:13 | disposition home or self-care (01) ==
LOC: DIORS 13:13
PROVIDERS: PCP Family Medicine; Referring Provider Family Medicine; Visit Provider Physician Assistant
DX: Z96.652 Presence of left artificial knee joint (principal)
CPT/HCPCS: 73560; 77073

== ENCOUNTER 2023-02-25 10:00 | Outpatient (CLI) | payer BC, MEDICAID, SELFPAY ==
[2023-02-25 12:54] LABS: ALT 57 U/L (16-63); AST 27 U/L (15-37); Albumin 4.1 g/dL (3.4-5.0); Alkaline Phosphatase 124 U/L (46-116); Anion Gap 7.7 mmol/L (3-11); BUN 17 mg/dL (7-18); Bilirubin, Total 0.7 mg/dL (0.2-1.0); CO2 29.3 mmol/L (21.0-32.0); CREATININE 1.1 mg/dL (0.70-1.30); Calcium 9.5 mg/dL (8.5-10.1); Chloride 97 mmol/L (98-107); Estimated GFR 79.28 (mL/min/1.73m2); Glucose 129 mg/dL (74-106); Potassium 3.9 mmol/L (3.5-5.1); Sodium 134 mmol/L (136-145); Total Protein 8.4 g/dL (6.4-8.2)
[2023-02-26 20:03] LABS: PSA, Screening 1.6 ng/mL (<=3.5)
== END 2023-02-25 10:01 | disposition home or self-care (01) ==
PROVIDERS: PCP Family Medicine; Referring Provider Family Medicine; Visit Provider Family Medicine
DX: Z00.00 Encounter for general adult medical examination without abnormal findings (principal)
CPT/HCPCS: 36415; 80053; 84153

== ENCOUNTER 2023-05-29 10:30 | Outpatient (CLI) | payer BC, MEDICAID, SELFPAY ==
--- NOTE | 2023-05-29 09:30 | DI.RAD_ITS ---
Exam(s) XR KNEE LT 3V AP,LAT,ATIYA EXAM: XR KNEE LT 3V AP,LAT,ATIYA CLINICAL HISTORY: LEFT KNEE PAIN. TECHNIQUE: 2D digital imaging was performed. Three views. COMPARISON: CR XR KNEE LT 1V from 08/19/2022 CR XR KNEE LT 1V from 09/09/2022 CR XR STANDING ALIGNMENT from 09/09/2022 FINDINGS: BONES: No acute fracture is present. No bony destructive lesion is seen. There has been no change in the alignment of the total knee prosthesis. JOINTS: The knee is normally aligned. A moderate-sized joint effusion is seen. SOFT TISSUE: Normal. IMPRESSION: Stable appearance the knee prosthesis. DATA REPOSITORY: RADIATION DOSE DELIVERED:
== END 2023-05-29 10:31 | disposition home or self-care (01) ==
LOC: DIORS 10:32
PROVIDERS: PCP Family Medicine; Referring Provider Family Medicine; Visit Provider Student in an Organized Health Care Education/Training Program
DX: M25.562 Pain in left knee (principal); Z96.652 Presence of left artificial knee joint
CPT/HCPCS: 73562

== ENCOUNTER 2023-09-25 13:52 | Outpatient (CLI) | payer BC, MEDICAID, SELFPAY ==
--- NOTE | 2023-09-25 09:00 | DI.RAD_ITS ---
Exam(s) XR KNEE LT 2V AP,LAT EXAM: XR KNEE LT 2V AP,LAT CLINICAL HISTORY: history of left TKA. TECHNIQUE: 2D digital imaging was performed. Two images were obtained. AP and lateral views were ob tained. COMPARISON: CR XR KNEE LT 3V AP,LAT,ATIYA from 05/29/2023 FINDINGS: BONES: There are stable post operative changes of a left total knee replacement present. No fracture or dislocation. JOINTS: The orthopedic hardware is in good position. No evidence of hardware loosening. SOFT TISSUE: Atherosclerosis. IMPRESSION: Stable postoperative changes. DATA REPOSITORY: RADIATION DOSE DELIVERED:
== END 2023-09-25 13:53 | disposition home or self-care (01) ==
LOC: DIORS 13:52
PROVIDERS: PCP Family Medicine; Visit Provider Student in an Organized Health Care Education/Training Program
DX: Z96.652 Presence of left artificial knee joint (principal); Z47.1 Aftercare following joint replacement surgery
CPT/HCPCS: 73560

== ENCOUNTER 2024-05-17 11:24 | Outpatient (CLI) | payer BC, MEDICAID, SELFPAY ==
[2024-05-17 12:51] LABS: ALT 45 U/L (16-63); AST 21 U/L (15-37); Alkaline Phosphatase 110 U/L (46-116); Anion Gap 9.5 mmol/L (3-11); BUN 16 mg/dL (7-18); Bilirubin, Total 0.48 mg/dL (0.2-1.0); CO2 30.5 mmol/L (21.0-32.0); CREATININE 1.1 mg/dL (0.70-1.30); Calcium 9.2 mg/dL (8.5-10.1); Chloride 100 mmol/L (98-107); Estimated GFR 78.79 (mL/min/1.73m2); Glucose 139 mg/dL (74-106); Potassium 4.1 mmol/L (3.5-5.1); Sodium 140 mmol/L (136-145); Total Protein 7.6 g/dL (6.4-8.2)
[2024-05-17 18:09] LABS: PSA, Screening 3.3 ng/mL (<=3.5)
== END 2024-05-17 11:25 | disposition home or self-care (01) ==
LOC: LOS 11:24
PROVIDERS: PCP Family Medicine; Visit Provider Family Medicine
DX: I10 Essential (primary) hypertension (principal); Z00.00 Encounter for general adult medical examination without abnormal findings
CPT/HCPCS: 36415; 80053; 84153

== ENCOUNTER 2024-10-14 15:27 | Outpatient (CLI) | payer BC, MEDICARE, MEDICAID, SELFPAY ==
--- NOTE | 2024-10-14 14:45 | DI.RAD_ITS ---
Exam(s) XR KNEE LT 3V AP,LAT,ATIYA EXAM: XR KNEE LT 3V AP,LAT,ATIYA CLINICAL HISTORY: knee pain. TECHNIQUE: 2D digital imaging was performed. COMPARISON: CR XR KNEE LT 2V AP,LAT from 09/25/2023 FINDINGS: 3 views Stable position alignment of the components of the prosthesis. No fracture or loosening evident. IMPRESSION: Stable satisfactory appearance DATA REPOSITORY: RADIATION DOSE DELIVERED:
== END 2024-10-14 15:28 | disposition home or self-care (01) ==
LOC: DIORS 15:28
PROVIDERS: PCP Family Medicine; Referring Provider Family Medicine; Visit Provider Student in an Organized Health Care Education/Training Program
DX: Z96.652 Presence of left artificial knee joint (principal); Z47.1 Aftercare following joint replacement surgery
CPT/HCPCS: 73562

== ENCOUNTER 2025-07-21 00:48 | Outpatient (CLI) | payer BC, MEDICARE, MEDICAID, SELFPAY ==
[2025-07-21 14:27] LABS: HCT 46.8 % (40.0-50.0); HGB 15.6 g/dL (13.5-17.5); MCH 30.4 pg (27.0-33.0); MCHC 33.3 % (32.0-36.0); MCV 91 fL (80-95); MPV 10.9 fL (8.0-11.0); Platelet Count 207 10^3/uL (130-400); RBC 5.13 10^6/uL (4.36-5.78); RDW 12.3 % (11.8-14.1); RDW-SD 41.5 fL; WBC 7.63 10^3/uL (4.4-10.8)
[2025-07-21 14:44] LABS: ALT 41 U/L (16-63); AST 22 U/L (15-37); Albumin 4.3 g/dL (3.4-5.0); Alkaline Phosphatase 97 U/L (46-116); Anion Gap 6.6 mmol/L (3-11); BUN 18 mg/dL (7-18); Bilirubin, Total 0.7 mg/dL (0.2-1.0); CO2 32.4 mmol/L (21.0-32.0); Calcium 9.8 mg/dL (8.5-10.1); Chloride 99 mmol/L (98-107); Estimated GFR 87.24 (mL/min/1.73m2); Glucose 125 mg/dL (74-106); Potassium 4.2 mmol/L (3.5-5.1); Sodium 138 mmol/L (136-145); TSH (W/Ref FT4) 2.11 uIU/mL (0.36-3.74); Total Protein 8.0 g/dL (6.4-8.2)
== END 2025-07-21 00:49 | disposition home or self-care (01) ==
LOC: LOS 00:49
PROVIDERS: PCP Family Medicine; Visit Provider Family Medicine
DX: E03.9 Hypothyroidism, unspecified (principal); R53.83 Other fatigue; I10 Essential (primary) hypertension
CPT/HCPCS: 36415; 80053; 85027; 84443

== ENCOUNTER 2025-08-03 02:12 | Outpatient (CLI) | payer BC, MEDICARE, MEDICAID, SELFPAY ==
--- NOTE | 2025-08-03 06:15 | DI.MRI_ITS ---
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 Both noninfused and contrast infused sequences were performed. IV Contrast injected was 17 cc Dotarem. COMPARISON: No exams were available for comparison FINDINGS: CEREBRAL PARENCHYMA: No evidence of intracranial hemorrhage, mass effect nor shift of midline structure. No extraaxial fluid collections. Ventricles are not enlarged nor shifted. There is no significant focal signal abnormality in the cerebellar hemispheres nor within the jasmin, midbrain, and thalami. There is no abnormal signal abnormality in the periventricular white matter. DWI: No areas of restricted diffusion to suggest acute ischemic event. SWI: No microhemorrhages evident. There are no ring enhancing lesions in the brain. There is no abnormal meningeal enhancement. PITUITARY GLAND: No mass nor parasellar abnormality. No obvious abnormality in the cavernous sinuses. FLOW VOIDS: Left vertebral artery flow void is dominant at the skull base. Is a main contributor to the formation of the basilar artery. Right vertebral artery flow void absent at this level. The other expected flow void are noted. No evidence of obvious aneurysm nor obvious vascular malformation. PARANASAL SINUSES: The visualized paranasal sinuses appear unremarkable. ORBITS: The left optic lens not visualize. Probably related to prior cataract surgery. There is some circumferential fluid around the anterior aspect of the right optic nerve just behind the right optic globe. This does not exhibit enhancement. Similar finding is not seen on the opposite-left side. There is no optic nerve enhancement on either side. IMPRESSION: 1. No ring enhancing lesions in the brain and no abnormal meningeal enhancement. No intracranial hemorrhage. 2. Evidence of previous cataract surgery in the left eye. There is some fluid around the most anterior aspect of the optic nerve of the opposite-right eye. There is no optic nerve enhancement. DATA REPOSITORY:
[2025-08-03] MEDS: Gadoterate meglumine 20 ML SYRINGE IVP (12:11)
[2025-08-03] MEDS: Normal Saline Flush 10 ML SYR IVP (12:11)
== END 2025-08-03 02:32 ==
LOC: DI 02:13
PROVIDERS: PCP Family Medicine; Visit Provider Family Medicine
DX: Z85.830 Personal history of malignant neoplasm of bone (principal); R51.9 Headache, unspecified; H47.20 Unspecified optic atrophy
CPT/HCPCS: 70553

== ENCOUNTER 2025-08-08 13:14 | Outpatient (CLI) | payer BC, MEDICARE, MEDICAID, SELFPAY ==
--- NOTE | 2025-08-08 13:00 | RT.EKG_ITS ---
APPROVED REPORT Exam: Resting ECG Reason for Exam: c/o ZUHAIR Patient Location: O HR:94 bpm ECG Measurements Heart Rate 94 AXIS MD 153 P 58 QRSd 95 QRS 76 QT 346 T 57 QTc 433 Conclusion Sinus rhythm...normal P axis, V-rate 50- 99 Normal Electrocardiogram
== END 2025-08-08 13:15 | disposition home or self-care (01) ==
LOC: DI.CM 13:14
PROVIDERS: PCP Family Medicine; Visit Provider Family Medicine
DX: R06.02 Shortness of breath (principal); H47.20 Unspecified optic atrophy
CPT/HCPCS: 93010

== ENCOUNTER 2025-08-18 03:58 | Outpatient (CLI) | payer BC, MEDICARE, MEDICAID, SELFPAY ==
--- NOTE | 2025-08-18 05:45 | ETT_ITS ---
APPROVED REPORT Exam: Exercise Treadmill Patient Location: Out-Patient Room/Bed: Stress Nurse: Tri Umanzor RN Ordering Provider:XOCHITL SANABRIA, Contact Number: [phone] BMI: 26.43 Baseline Rhythm: Sinus Rhythm. Indications: Tachycardia; Fatigue. Medical History Medical History: Hx of Lung Cancer; Hypokalemia; Hypomagnesemia; Osteosarcoma of Bone; S/P Lower Limb Amputation (Right Leg); HTN; Severe Frontal Headaches. Cardiac Medications: Aspirin; Omeprazole. Allergies: None. Cardiac Risk Factors: Family Hx; HTN. Previous Cardiac Procedures: None. Pretest Chest Pain Characteristics: None. Exercise History: Physically active. Physical Disabilities: Pt. has a prosthetic on his right leg due to a lower limb amputation. Lung Sounds: Clear bilaterally throughout, anterior and posterior. Heart Sounds: S1 and S2 auscultated. Stress Test Details Test: Exercise stress testing was performed using a Jourdan protocol. Rest Stress HR Resting HR Supine: 96 bpm Max Heart Rate (APMHR): 162 bpm Resting HR Standin bpm Target HR (85% APMHR): 138 bpm Max HR Achieved: 112 bpm % of APMHR: 69 Recovery HR: 85 bpm HR response to stress: Normal HR response to stress. BP Resting BP Supine: 150/96 mmHg Resting BP Standin/90 mmHg Max BP: 160/90 mmHg Recovery BP: 150/94 mmHg BP response to stress: Normal blood pressure response to stress. ECG Resting ECG: Sinus Rhythm. Ectopy: None. Stress ECG: Sinus Tachycardia. ST Change: Nondiagnostic low heart rate. Arrhythmia: None. Recovery ECG: Sinus Rhythm. Recovery ST Change: Nondiagnostic low heart rate. Recovery Arrhythmia: None. Clinical Reason for Termination: Physical Disability; Unable to walk using Jourdan protocol due to right leg prosthetic. Stress Symptoms: None. Exercise duration: 00 min06 sec Highest Stage Reached: Stage 1: 1.7 mph at 10% grade. Exercise capacity: 1.00 METs Angina Score: None Rate Pressure Product: [id number] Stress ECG Conclusion 1. Resting electrocardiogram was normal 2. Patient was unable to exercise on the treadmill 3. Therefore the test was entirely nondiagnostic 4. If clinically indicated consider ordering test with pharmacologic stress Stress Test Summary STAGE Time (mins) Speed (mph) Grade (%) HR BP SpO2 SYMPTOMS METS Supine 96 150/96 94 Standing 98 160/90 94 1 3 1.7 10 108 93 4.5 1 min recovery 98 93 3 min recovery 94 92 6 min recovery 92 93 9 min recovery 86 140/90 92 12 min recovery 88 138/94 94 15 min recovery 85 150/94 93 Pt. performed an ETT using the Jourdan protocol. Pt. was unable to complete the test due to the treadmill going at a speed that pt. wasn't able to tolerate with the prosthetic on his right leg. Pt. was conversing pleasantly with nursing staff upon leaving the Stress Lab. Pt. left ambulatory in no apparent distress.
== END 2025-08-18 04:18 ==
LOC: DI 03:58
PROVIDERS: PCP Family Medicine; Visit Provider Family Medicine
DX: R53.83 Other fatigue (principal); R00.0 Tachycardia, unspecified
CPT/HCPCS: 93017

== ENCOUNTER → 2025-08-24 01:26 | Outpatient (CLI) | payer BC, MEDICARE, MEDICAID, SELFPAY ==
--- NOTE | 2025-08-24 08:30 | DI.US_ITS ---
APPROVED REPORT EXAM: Comprehensive 2D, Doppler, and color-flow Echocardiogram Patient Location: Out-Patient Clay Washer: Kaye Kent RDCS (AE) Indications: Fatigue, SOB, Chest pain, Tachycardia Other Information Study Quality: Adequate. Technically limited study due to body habitus, exam done supine h/o shoulder injury. Conclusion Technically difficult study Normal left ventricular wall thickness and chamber size. Ejection fraction is 55 to 60%. No wall motion abnormalities are identified Normal right ventricular size and function Both atria are normal in size There is no structural or hemodynamically significant valvular disease Wall motion Left Ventricle The left ventricle is normal size. The left ventricular systolic function is normal. The left ventricular ejection fraction is within the normal range. There is normal left ventricular wall thickness. There is normal LV segmental wall motion. There is no ventricular septal defect visualized. LVEF is 55-60%. Right Ventricle The right ventricle is normal size. The right ventricular systolic function is normal. Atria The left atrium size is normal. The right atrium size is normal. The interatrial septum is intact with no evidence for an atrial septal defect. Aortic Valve The aortic valve is normal in structure. There is no aortic valvular stenosis. No aortic regurgitation is present. Mitral Valve The mitral valve is normal in structure. No evidence of mitral valve stenosis. Trace mitral regurgitation. Tricuspid Valve The tricuspid valve is normal in structure. There is no tricuspid valve stenosis. Trace tricuspid regurgitation. Unable to assess PA pressure. Pulmonic Valve The pulmonary valve is normal in structure. There is no pulmonic valvular stenosis. There is no pulmonic valvular regurgitation. Great Vessels The aortic root is normal in size. Ascending aorta is not well visualized. Aortic arch is not well visualized. IVC is normal in size and collapses >50% with inspiration. Pericardium There is no pericardial effusion. 2D Dimensions IVSD d PLAX 0.92 cm M: 0.6-1.2 Ao Root d 2.97 cm M: 3.1 - 3.7 LVPW d PLAX 0.92 cm M: 0.6 - 1.2 LVID d PLAX 4.40 cm M: 4.2 - 5.8 LVDs 3.10 cm M: 2.5 - 4.0 LV EF Teichholz 57.4 % FS 29.95 % LV EDV (Teich) 85.8 mL LV ESV (Teich) 36.5 mL M-Mode TAPSE 2.25 cm (M/F) >1.7 Auto EF LV EDV A4C 122.7 mL LV EDV A2C 85.9 mL LV EDV BP 103.6 mL LV ESV A4C 55.1 mL LV ESV A2C 39.0 mL LV ESV BP 46.1 mL LVEF(%) A4C 55.1 % LVEF(%) A2C 54.6 % LVEF(%) BP 55.5 % LV SV A4C 67.5 ml LV SV A2C 46.9 ml LV SV BP 57.6 ml LV CO A4C 6.2 L/min LV CO A2C 4.3 L/min LV CO BP 5.3 L/min HR A4C 92.07 BPM HR A2C 92.55 BPM LV EDV Index (BP) LA Volume LA Length A4C 4.8 cm LA Length A2C 3.4 cm LA Area A4C s 14.05 cm2 LA Area A2C s 9.15 cm2 LA Vol A4C A-L 35.15 mL LA Vol A2C A-L 20.58 mL LA Vol Biplane A-L 31.6 mL LA Vol/BSA A4C A-L LA Vol/BSA A2C A-L LA Vol/BSA BP A-L 16.0 mL/m2 LA Vol A4C MOD 31.8 mL LA Vol A2C MOD 17.6 mL LA Vol BP MOD 27.8 mL LV Diastology MV E' medial 0.089 (>0.07 m/s) MV E Vmax 0.51 (0.4-1.3 m/s) MV E/E' MED 5.77 (<14) MV A Vmax 0.70 (0.4-1.3 m/s) MV E' lateral 0.083 (>0.1 m/s) E/A Ratio 0.7 MV E/E' LAT 6.17 (<14) MV E' Average 0.086 m/s MV E/E'(average) 5.96 Aortic Valve AoV Vmax 1.00 m/s LVOT Vmax 0.90 m/s AoV Peak Grad 4.0 mmHg LVOT Peak Grad 3.3 mmHg AoV Area (Vmax) 2.75 cm2 LVOT VTI 0.183 m AoV VTI 0.182 m LVOT Mean Grad 1.5 mmHg AoV Mean Steven. 0.67 m/s LVOT SV 55.87 mL AoV Mean Grad 2.1 mmHg LVOT Diam s 1.95 cm AoV Area (VTI) 3.06 cm2 AV Regurg Peak Gr. 4.03 mmHg Velocity Ratio 0.90 Mitral Valve MV DT 333 (160-240 msec) MV Vmax TIPS 0.65 m/s MV Mean Grad 0.7 (<2mmHg) MV VTI 0.158 m Pulmonary Valve PV Vmax 0.84 (0.5-1.5 m/s) RVOT Vmax 0.68 m/s PV Peak Grad 2.9 mmHg RVOT Peak Gr. 1.8 mmHg PV Mean Steven 0.55 m/s RVOT VTI 0.126 m PV Mean Grad 1.4 mmHg RVOT Mean Gr. 0.9 mmHg Tricuspid Valve TV S' 0.14 m/s
== END ==
LOC: DI 01:26
PROVIDERS: PCP Family Medicine; Visit Provider Family Medicine
DX: R07.9 Chest pain, unspecified (principal); R53.83 Other fatigue
CPT/HCPCS: 93306